=== PATIENT | female | born 1965 | race Caucasian/White ===

== ENCOUNTER 2017-04-25 08:48 | Emergency (ER) | payer OTHER ==
[~2017-04-25] VITALS: Ht 160 cm; Wt 75.0 kg
[2017-04-25 08:54] VITALS: Ht 160 cm; Wt 75.0 kg
[2017-04-25] MEDS ORDERED: TETRACAINE 0.5% 4 ML OPH LEFT EYE ONE (09:30)
[2017-04-25] MEDS ORDERED: FLUORESCEIN STRIP LEFT EYE ONE (09:30)
[2017-04-25] MEDS ORDERED: OFLO5DRO46 LEFT EYE (10:37)
[2017-04-25] MEDS ORDERED: BENA10TA48 PO (10:39)
--- NOTE | 2017-04-25 16:30 | ERD ---
ER Documentation Chief Complaint Date/Time DATE: 04/25/17 TIME: 16:25 Chief Complaint left eye redness , possible fb HPI 51-year-old female patient with a past medical history of hypertension presents to the ED complaining of left eye redness with a possible foreign body that started yesterday. Denies wearing any glasses or contacts. States that she tried to use Visine and started to flush her left side of the eye. Denies any eye pain however does feel like there is a foreign body sensation. Denies any weakness, numbness and tingling, headache, nausea, vomiting, weakness, dizziness , diplopia, photophobia, phonophobia. ROS All systems reviewed and are negative except as per history of present illness. Medications Home Meds Active Scripts Benazepril Hcl* (Benazepril Hcl*) 10 Mg Tablet, 10 MG PO DAILY, #30 TAB Prov:GLORIA VAZQUEZ PA-C 04/25/17 Ofloxacin* (Ocuflox*) 0.3%-5 Ml Ophth Drops, 1 DROP LEFT EYE QID for 5 Days, BOTTLE Prov:GLORIA VAZQUEZ PA-C 04/25/17 PMhx/Soc Hx Alcohol Use: No Hx Substance Use: No Hx Tobacco Use: No Smoking Status: Never smoker Physical Exam Vitals Vital Signs Date Time Temp Pulse Resp B/P Pulse Ox O2 Delivery O2 Flow Rate FiO2 04/25/17 08:54 98.1 65 20 147/65 99 Physical Exam Const: Ffp-vkl-bucabtjaz, well-nourished. In no acute distress. Head: Atraumatic, normocephalic Eyes: Erythematous left conjunctiva with injection. No purulent discharge. PERRLA. EOMI. No foreign bodies noted. ENT: Normal external ear. Ear canal without erythema. Tympanic membrane pearly marie without effusion or bulging. Nasal canal clear with normal turbinates. Moist oropharynx without tonsillar exudates. Non-erythematous pharynx. Uvula midline. No drooling. No trismus. Neck: No cervical midline tenderness. Full range of motion. No meningismus. No cervical lymphadenopathy. No JVD. Resp: Clear to auscultation bilaterally. No wheezing, rhonchi, rales, or crackles. No accessory muscle use. No retractions. Cardio: Regular rate and rhythm. No murmurs, rubs or gallops Skin: Normal skin turgor. No petechiae or rashes Ext: No cyanosis, or edema. Distal pulses intact bilaterally. Neur: Awake and alert. Normal gait. Normal coordination. Cranial Nerves II- VII intact. Normal finger to nose. Muscle strength 5/5. Sensation intact. Psych: Normal Mood and Affect Results 24 hrs Current Medications Medications (Trade) Dose Ordered Sig/Adam Route PRN Reason Start Time Stop Time Status Last Admin Dose Admin Tetracaine HCl (Tetracaine 0.5% Steri-Unit Chapis) 1 drop ONCE ONCE LEFT EYE 04/25/17 09:30 04/25/17 09:31 DC Fluorescein Sodium (Symbf-F-Pefkh) 1 strip ONCE ONCE LEFT EYE 04/25/17 09:30 04/25/17 09:31 DC Procedures/MDM 51-year-old female patient with no significant past medical history presents the ED complaining of left eye redness. Patient is afebrile and nontoxic- appearing. Patient has normal vital signs. Patient also reported that she wanted a refill of her benazepril. Patient's left eye was irrigated with normal saline. Patient reports that she feels better. Eye Exam w/ Wood's lamp: Visual Acuity: 2/200 L 2/200 R Bilateral 2/200 Visual Gilmore: Intact in all four quadrants bilaterally Lac ducts/glands: No swelling Lids w/ evertion: Normal, no foreign body Conj/[place]: Clear, negative Fluorescein/Karyn's Anterior Chamber: Clear Patient's ocular symptoms have stabilized while they have been evaluated in the department and are appropriate for outpatient work up. Low suspicion for ruptured globe, retinal detachment, periorbital cellulitis, acute angle closure glaucoma, deep space infection, iritis, traumatic hyphema, conjunctivitis, subconjunctival hemorrhage, corneal abrasion, corneal ulcer, pterygium, hypopyon , blepharitis, hordeolum, chalazion, or other emergent conditions. Discharge medications: Benazepril, Ocuflox Strictly instructed patient to follow up with an market master within 24 hours. Instructed patient to return to the ED for any worsening symptoms. Patient is hemodynamically stable. Patient's questions were answered. Patient understood and agreed with discharge plan. Departure Diagnosis: Primary Impression: Sensation of foreign body in eye Additional Impression: Encounter for medication refill Condition: Stable Patient Instructions: High Blood Pressure (Hypertension), Corneal Abrasion Referrals: [facility] YOU HAVE RECEIVED A MEDICAL SCREENING EXAM AND THE RESULTS INDICATE THAT YOU DO NOT HAVE A CONDITION THAT REQUIRES URGENT TREATMENT IN THE EMERGENCY DEPARTMENT. FURTHER EVALUATION AND TREATMENT OF YOUR CONDITION CAN WAIT UNTIL YOU ARE SEEN IN YOUR DOCTORS OFFICE WITHIN THE NEXT 1-2 DAYS. IT IS YOUR RESPONSIBILITY TO MAKE AN APPOINTMENT FOR FOLOW-UP CARE. IF YOU HAVE A PRIMARY DOCTOR --you should call your primary doctor and schedule an appointment IF YOU DO NOT HAVE A PRIMARY DOCTOR YOU CAN CALL OUR PHYSICIAN REFERRAL HOTLINE AT IF YOU CAN NOT AFFORD TO SEE A PHYSICIAN YOU CAN CHOSE FROM THE FOLLOWING [facility] [address] [facility] [address] [facility]. [facility] [address] [facility] [address] [facility] [address] [facility]. [facility] [address] [facility] [facility] YOU HAVE RECEIVED A MEDICAL SCREENING EXAM AND THE RESULTS INDICATE THAT YOU DO NOT HAVE A CONDITION THAT REQUIRES URGENT TREATMENT IN THE EMERGENCY DEPARTMENT. FURTHER EVALUATION AND TREATMENT OF YOUR CONDITION CAN WAIT UNTIL YOU ARE SEEN IN YOUR DOCTORS OFFICE WITHIN THE NEXT 1-2 DAYS. IT IS YOUR RESPONSIBILITY TO MAKE AN APPOINTMENT FOR FOLOW-UP CARE. IF YOU HAVE A PRIMARY DOCTOR --you should call your primary doctor and schedule and appointment IF YOU DO NOT HAVE A PRIMARY DOCTOR YOU CAN CALL OUR PHYSICIAN REFERRAL HOTLINE AT . IF YOU CAN NOT AFFORD TO SEE A PHYSICIAN YOU CAN CHOSE FROM THE FOLLOWING [facility] INSTITUTIONS: [facility] [address] [place] [address] [facility] [address] [place] [address] [facility] + [facility] [address] [place] [address] [facility] Hours: Mon - Fri 9:00 AM - 5:00 PM Additional Instructions: FOLLOW UP WITH YOUR OPTHALOMOLOGIST WITHIN 24 HOURS.Return to this facility if you are not improving as expected. GLORIA VAZQUEZ PA-C April 25, 2017 16:30 9:00 AM - 5:00 PM Additional Instructions: FOLLOW UP WITH YOUR OPTHALOMOLOGIST WITHIN 24 HOURS.Return to this facility if you are not improving as expected. GLORIA VAZQUEZ PA-C April 25, 2017 16:30
== END 2017-04-25 10:47 | disposition home or self-care (01) ==
LOC: FTE 08:48
DX: H57.8 Other specified disorders of eye and adnexa (principal); I10 Essential (primary) hypertension; Z76.0 Encounter for issue of repeat prescription
CPT/HCPCS: Z7502; Z7610; 99284